=== PATIENT | male | born 1940 | race Hispanic/Latino ===

== ENCOUNTER → 2019-01-01 | Outpatient (CLI) | payer OTHER ==
[~2019-01-01] MED LIST: REGADENOSON 0.4 MG/5 ML PF SYG IVP SCH
== END | disposition home or self-care (01) ==
LOC: SHCH 09:10
PROVIDERS: ATTEND Internal Medicine Cardiovascular Disease
DX: I21.19 ST elevation (STEMI) myocardial infarction involving other coronary artery of inferior wall (principal)
CPT/HCPCS: 78452; 93017; 96374; A9500 ×2; J2785

== ENCOUNTER → 2020-06-13 | Outpatient (CLI) | payer OTHER | END | disposition home or self-care (01) | LOC: RAH 09:53 | PROVIDERS: ATTEND Internal Medicine Cardiovascular Disease | DX: R60.9 Edema, unspecified (principal) | CPT/HCPCS: 93970 ==

== ENCOUNTER → 2020-08-21 | Outpatient (CLI) | payer OTHER | END | disposition home or self-care (01) | LOC: SHCH 11:07 | PROVIDERS: ATTEND Internal Medicine Cardiovascular Disease | DX: I87.2 Venous insufficiency (chronic) (peripheral) (principal); I73.9 Peripheral vascular disease, unspecified; R59.0 Localized enlarged lymph nodes; R68.89 Other general symptoms and signs | CPT/HCPCS: 93925; 93970 ==

== ENCOUNTER → 2021-11-18 | Outpatient (CLI) | payer OTHER ==
[~2021-11-18] VITALS: Ht 172.7 cm; Wt 76.0 kg
[~2021-11-18] MED LIST changes: +AMLO-257 PO; +ASPI-1197 PO; +ATOR40TA71 PO; +CARV12.511 PO; +CEFAZOLIN SODIUM 1 GM VIAL IVP SCH; +CHOL200041 PO; +CITA-107 PO; +FURO20TA4 PO; +LISI2.5T13 PO; +MULT-1285 PO; +OMEG100033 PO; +OMEP20CA12 PO; -REGADENOSON 0.4 MG/5 ML PF SYG IVP SCH
[2021-11-18 13:02] LABS: BASOPHILS % (AUTO) 0.6 % (0.0-5.0); EOSINOPHILS % (AUTO) 2.7 % (0.0-8.0); HEMATOCRIT 42.9 % (42-54); LYMPHOCYTES % (AUTO) 21.6 % (21.0-51.0); MEAN CORPUSCULAR HEMOGLOBIN 29.2 pg (27.0-33.0); MEAN CORPUSCULAR HGB CONC 33.8 g/dL (32.0-36.0); MEAN CORPUSCULAR VOLUME 86.3 fL (79-99); MONOCYTES % (AUTO) 9.5 % (3.0-13.0); NEUTROPHILS % (AUTO) 65.4 % (40.0-77.0); PLATELET COUNT (AUTO) 118 K/uL (130-400); RED BLOOD CELL COUNT(AUTO) 4.97 MIL/uL (4.50-6.20); RED CELL DISTRIBUTION WIDTH 15.6 % (11.0-15.5); WHITE BLOOD COUNT (AUTO) 6.2 K/uL (4.8-10.8)
[2021-11-18 13:09] LABS: POTASSIUM 3.9 mmol/L (3.5-5.1)
[2021-11-18 13:59] LABS: CREATININE 1.4 mg/dL (0.5-1.5)
[2021-11-19 09:06] VITALS: BP 197/86
== END | disposition home or self-care (01) ==
LOC: EDSTATUS 10:00 → DAH 10:00
PROVIDERS: ATTEND Surgery
DX: Z01.818 Encounter for other preprocedural examination (principal); K40.90 Unilateral inguinal hernia, without obstruction or gangrene, not specified as recurrent; I49.1 Atrial premature depolarization; I45.10 Unspecified right bundle-branch block
CPT/HCPCS: 71045; 87426; 80048; 85025; 36415; 93005; A6260

== ENCOUNTER 2021-11-30 08:03 | Observation (INO) | payer OTHER ==
[2021-11-27 14:53] LABS: EOSINOPHILS % (AUTO) 4.8 % (0.0-8.0); HEMATOCRIT 36.6 % (42-54); LYMPHOCYTES % (AUTO) 37.8 % (21.0-51.0); MEAN CORPUSCULAR HEMOGLOBIN 29.5 pg (27.0-33.0); MEAN CORPUSCULAR HGB CONC 33.6 g/dL (32.0-36.0); MEAN CORPUSCULAR VOLUME 87.8 fL (79-99); MONOCYTES % (AUTO) 13.3 % (3.0-13.0); NEUTROPHILS % (AUTO) 42.9 % (40.0-77.0); PLATELET COUNT (AUTO) 104 K/uL (130-400); RED BLOOD CELL COUNT(AUTO) 4.17 MIL/uL (4.50-6.20); RED CELL DISTRIBUTION WIDTH 15.6 % (11.0-15.5)
[2021-11-27 15:10] LABS: CREATININE 1.3 mg/dL (0.5-1.5); POTASSIUM 3.7 mmol/L (3.5-5.1)
[2021-11-27 16:13] VITALS: BP 119/62
[~2021-11-30] VITALS: Ht 172.7 cm; Wt 78.7 kg
[2021-11-30] VITALS (23 sets, daily range): BP systolic 140–160; BP diastolic 65–97
[2021-11-30] MEDS ORDERED: BUPIVACAINE/PF 0.25% 30ML VIAL IJ ONE (09:01)
[2021-11-30] MEDS ORDERED: LACTATED RINGERS 1000ML 1,000 ML IV ONE (09:28)
[2021-11-30] MEDS ORDERED: CEFAZOLIN SODIUM 1 GM VIAL ONE (09:28)
[2021-11-30] MEDS ORDERED: LISI2.5T13 PO (10:16)
[2021-11-30] MEDS ORDERED: CITA-107 PO (10:16)
[2021-11-30] MEDS ORDERED: MULT-1285 PO (10:16)
[2021-11-30] MEDS ORDERED: ASPI-1197 PO (10:16)
[2021-11-30] MEDS ORDERED: CHOL200041 PO (10:16)
[2021-11-30] MEDS ORDERED: ATOR40TA71 PO (10:16)
[2021-11-30] MEDS ORDERED: OMEG100033 PO (10:16)
[2021-11-30] MEDS ORDERED: FURO20TA4 PO (10:16)
[2021-11-30] MEDS ORDERED: AMLO-257 PO (10:16)
[2021-11-30] MEDS ORDERED: OMEP20CA12 PO (10:16)
[2021-11-30] MEDS ORDERED: CARV12.511 PO (10:16)
[2021-11-30] MEDS ORDERED: LIDOCAINE HCL-MPF 2% 5ML VIAL ONE (11:23)
[2021-11-30] MEDS ORDERED: DEXAMETHASONE SOD PHOSPHATE 4 MG/ML 1ML VIAL ONE (11:23)
[2021-11-30] MEDS ORDERED: NEOSTIGMINE 5MG/5ML SYR IV ONE (11:24)
[2021-11-30] MEDS ORDERED: ROCURONIUM 10MG/1ML SYR 10 MG/ML ML ONE (11:24)
[2021-11-30] MEDS ORDERED: GLYCOPYRROLATE 1 MG/5 ML SYRINGE ONE (11:24)
[2021-11-30] MEDS ORDERED: FENTANYL CITRATE PF 50 MCG/1 ML 2ML VIAL ONE (11:25)
[2021-11-30] MEDS ORDERED: SUCCINYLCHOLINE CHLORIDE 20 MG/ML 10 ML VIAL ONE (13:16)
[2021-11-30] MEDS ORDERED: PROPOFOL 10 MG/ML 20ML VIAL IV ONE (13:16)
[2021-11-30] MEDS ORDERED: MEPERIDINE-PF 25 MG/ML SYG ONE (14:50)
[2021-11-30] MEDS: LACTATED RINGERS 1000ML 1,000 ML IV SCH (18:30)
[2021-11-30] MEDS ORDERED: ACETAMINOPHEN WITH CODEINE 1 TAB TAB PO PRN (18:30)
[2021-11-30] MEDS ORDERED: MORPHINE 4 MG SYG IVP PRN (18:30)
[2021-11-30] MEDS ORDERED: ONDANSETRON 4MG INJ IVP PRN (18:30)
[2021-11-30] MEDS: ATORVASTATIN 40 MG TABLET PO SCH (21:20)
[2021-11-30] MEDS: FUROSEMIDE 20 MG TABLET PO SCH (21:20)
[2021-11-30] MEDS: LISINOPRIL 2.5 MG TABLET PO SCH (21:21)
[2021-11-30] MEDS: CARVEDILOL 12.5 MG TABLET PO SCH (21:21)
[2021-11-30] MEDS: CEFAZOLIN SODIUM 1 GM VIAL IVP SCH (21:29)
[2021-12-01 01:17] VITALS: BP 165/93
[2021-12-01] MEDS ORDERED: CEFAZOLIN SODIUM 1 GM VIAL ONE ×2 (04:46→04:47)
[2021-12-01] MEDS: CEFAZOLIN SODIUM 1 GM VIAL IVP SCH (04:48)
[2021-12-01] MEDS: LACTATED RINGERS 1000ML 1,000 ML IV SCH ×2 (06:12→21:10)
[2021-12-01 08:00] VITALS: BP 143/84
[2021-12-01] MEDS: CHOLECALCIFEROL 50 MCG PO SCH (09:00)
[2021-12-01] MEDS: FISH OIL 1000 MG/CAP PO SCH (09:52)
[2021-12-01] MEDS: PANTOPRAZOLE 40 MG TAB DR PO SCH (09:52)
[2021-12-01] MEDS: LISINOPRIL 2.5 MG TABLET PO SCH ×2 (09:52→21:15)
[2021-12-01] MEDS: CITALOPRAM 20 MG TABLET PO SCH (09:52)
[2021-12-01] MEDS: AMLODIPINE 5 MG TAB PO SCH (09:52)
[2021-12-01] MEDS: FUROSEMIDE 20 MG TABLET PO SCH ×2 (09:53→21:15)
[2021-12-01] MEDS: MULTIVITAMIN WITH MINERALS TABLET PO SCH (09:54)
[2021-12-01] MEDS: ASPIRIN 81MG CHEW TAB PO SCH (09:54)
[2021-12-01] MEDS: CARVEDILOL 12.5 MG TABLET PO SCH ×2 (09:56→21:15)
[2021-12-01 12:00] VITALS: BP 152/88
[2021-12-01 16:00] VITALS: BP 136/75
[2021-12-01 20:00] VITALS: BP 123/69
[2021-12-01] MEDS: ATORVASTATIN 40 MG TABLET PO SCH (21:15)
[2021-12-02] VITALS: BP 131/68
[2021-12-02 04:00] VITALS: BP 136/71
[2021-12-02] MEDS: CHOLECALCIFEROL 50 MCG PO SCH (09:00)
[2021-12-02] MEDS: FISH OIL 1000 MG/CAP PO SCH (09:10)
[2021-12-02] MEDS: AMLODIPINE 5 MG TAB PO SCH (09:10)
[2021-12-02] MEDS: LISINOPRIL 2.5 MG TABLET PO SCH (09:10)
[2021-12-02] MEDS: MULTIVITAMIN WITH MINERALS TABLET PO SCH (09:10)
[2021-12-02 09:11] VITALS: BP 134/74
[2021-12-02] MEDS: CARVEDILOL 12.5 MG TABLET PO SCH (09:11)
[2021-12-02] MEDS: PANTOPRAZOLE 40 MG TAB DR PO SCH (09:12)
[2021-12-02] MEDS: FUROSEMIDE 20 MG TABLET PO SCH (09:12)
[2021-12-02] MEDS: ASPIRIN 81MG CHEW TAB PO SCH (09:12)
[2021-12-02] MEDS: CITALOPRAM 20 MG TABLET PO SCH (09:12)
[2021-12-02] MEDS: LACTATED RINGERS 1000ML 1,000 ML IV SCH (09:17)
== END 2021-12-02 16:00 ==
LOC: DAH 08:03 → DAHIP 08:04 → DAH 08:04 → EDSTATUS 12:00 → 4AH 15:28 → 3CH 12-01 03:05
PROVIDERS: ADMIT Surgery; ATTEND Surgery
DX: K40.90 Unilateral inguinal hernia, without obstruction or gangrene, not specified as recurrent (principal); Z20.822 Contact with and (suspected) exposure to COVID-19; I13.0 Hypertensive heart and chronic kidney disease with heart failure and stage 1 through stage 4 chronic kidney disease, or unspecified chronic kidney disease; E10.22 Type 1 diabetes mellitus with diabetic chronic kidney disease; I50.9 Heart failure, unspecified; N18.30 Chronic kidney disease, stage 3 unspecified; K21.9 Gastro-esophageal reflux disease without esophagitis; I25.5 Ischemic cardiomyopathy; E78.5 Hyperlipidemia, unspecified; G30.9 Alzheimer's disease, unspecified; F02.80 Dementia in other diseases classified elsewhere, unspecified severity, without behavioral disturbance, psychotic disturbance, mood disturbance, and anxiety; Z79.82 Long term (current) use of aspirin; Z79.899 Other long term (current) drug therapy
CPT/HCPCS: 80048; 85025; 87426; 36415; 49505; 96374; 88302; 96376; 96375; 97161; 97039 ×4; 97530; G0378 ×54; A4510; A4663; J7030; A4452; A4649; J7120 ×4; J3010; J0690 ×4; J3490 ×3; J2710; J0330; J2704; J1100; J2175; C1781; A4930 ×2; A4215; A4223; A4222; A4221; A4216; A4600; J2405

== ENCOUNTER 2021-12-04 00:46 | Observation (INO) | payer OTHER ==
[~2021-12-04] VITALS: Ht 168.9 cm; Wt 76.1 kg
[~2021-12-04 00:46] MED LIST changes: -CEFAZOLIN SODIUM 1 GM VIAL IVP SCH
[2021-12-04 01:13] LABS: BASOPHILS % (AUTO) 0.3 % (0.0-5.0); EOSINOPHILS % (AUTO) 0.6 % (0.0-8.0); HEMATOCRIT 32.6 % (42-54); MEAN CORPUSCULAR HEMOGLOBIN 29.6 pg (27.0-33.0); MEAN CORPUSCULAR VOLUME 86.9 fL (79-99); MONOCYTES % (AUTO) 14.8 % (3.0-13.0); PLATELET COUNT (AUTO) 100 K/uL (130-400); RED BLOOD CELL COUNT(AUTO) 3.75 MIL/uL (4.50-6.20); RED CELL DISTRIBUTION WIDTH 15.3 % (11.0-15.5); WHITE BLOOD COUNT (AUTO) 6.8 K/uL (4.8-10.8)
[2021-12-04 01:24] LABS: POTASSIUM 3.3 mmol/L (3.5-5.1)
[2021-12-04 01:28] LABS: ALBUMIN 4.1 g/dL (3.5-5.0); MAGNESIUM 2.2 mg/dL (1.80-2.40); TOTAL PROTEIN, SERUM 7.3 g/dL (6.0-8.3)
[2021-12-04] MEDS ORDERED: 0.9%NACL 1000ML 1,000 ML IV SCH (01:30)
[2021-12-04] MEDS ORDERED: TEMAZEPAM 15 MG CAPSULE PO PRN (02:30)
[2021-12-04] MEDS ORDERED: LACTULOSE 20 GM/30 ML UDCUP PO PRN (02:30)
[2021-12-04] MEDS ORDERED: DOCUSATE SODIUM 100 MG CAP PO PRN (02:30)
[2021-12-04] MEDS ORDERED: TRAMADOL HCL 50 MG TABLET PO PRN (02:30)
[2021-12-04] MEDS ORDERED: LACTATED RINGERS 1000ML 1,000 ML IV SCH (02:30)
[2021-12-04] MEDS ORDERED: HYDROCODONE/ACETAMINOPHEN 5/325 MG TAB PO PRN (02:30)
[2021-12-04] MEDS: 0.9%NACL 1000ML 1,000 ML IV SCH ×3 (03:04→19:54)
[2021-12-04 04:00] VITALS: BP 153/77
[2021-12-04 08:00] VITALS: BP 139/80
[2021-12-04 11:00] VITALS: BP 133/72
[2021-12-04 12:17] LABS: CREATININE 2.3 mg/dL (0.5-1.5); POTASSIUM 3.3 mmol/L (3.5-5.1)
[2021-12-04 16:00] VITALS: BP 144/71
[2021-12-04 19:59] VITALS: BP 144/72
[2021-12-04] MEDS ORDERED: LIDOCAINE HCL-MPF 1% 2ML VIAL IV PRN (23:30)
[2021-12-04] MEDS ORDERED: POTASSIUM CHLORIDE 10% ELIXIR 20 MEQ/15 ML UDCUP PO PRN (23:30)
[2021-12-04] MEDS ORDERED: POTASSIUM CHLORIDE 10MEQ/100ML 100 ML IV PRN (23:30)
[2021-12-04] MEDS: TAMSULOSIN HCL 0.4 MG CAP.ER.24H PO SCH (23:31)
[2021-12-05] VITALS (7 sets, daily range): BP systolic 118–126; BP diastolic 56–69
[2021-12-05 04:59] LABS: HEMATOCRIT 29.9 % (42-54); MEAN CORPUSCULAR HGB CONC 32.4 g/dL (32.0-36.0); MEAN CORPUSCULAR VOLUME 89.3 fL (79-99); RED BLOOD CELL COUNT(AUTO) 3.35 MIL/uL (4.50-6.20); RED CELL DISTRIBUTION WIDTH 15.4 % (11.0-15.5)
[2021-12-05 05:25] LABS: ALBUMIN 3.3 g/dL (3.5-5.0); CREATININE 1.2 mg/dL (0.5-1.5); MAGNESIUM 2.1 mg/dL (1.80-2.40); PHOSPHORUS 2.7 mg/dL (2.5-4.9); POTASSIUM 3.5 mmol/L (3.5-5.1); TOTAL PROTEIN, SERUM 6.2 g/dL (6.0-8.3)
[2021-12-05] MEDS: **HM**VIT D3 50MCG PO SCH (09:00)
[2021-12-05] MEDS ORDERED: NON-FORMULARY MEDICATION 1 EACH (Omeprazole 20 MG) PO SCH (09:00)
[2021-12-05] MEDS: AMLODIPINE 5 MG TAB PO SCH (09:41)
[2021-12-05] MEDS: MULTIVITAMIN WITH MINERALS TABLET PO SCH (09:41)
[2021-12-05] MEDS: CITALOPRAM 20 MG TABLET PO SCH (09:41)
[2021-12-05] MEDS: FISH OIL 1000 MG/CAP PO SCH (09:41)
[2021-12-05] MEDS: ASPIRIN 81MG CHEW TAB PO SCH (09:41)
[2021-12-05] MEDS: PANTOPRAZOLE 40 MG TAB DR PO SCH (09:41)
[2021-12-05] MEDS: CARVEDILOL 12.5 MG TABLET PO SCH ×2 (09:42→21:36)
[2021-12-05] MEDS: 0.9%NACL 1000ML 1,000 ML IV SCH (15:54)
[2021-12-05 16:23] LABS: APPEARANCE,URINE CLOUDY (CLEAR); BILIRUBIN,URINE NEGATIVE (NEGATIVE); COLOR,URINE YELLOW (YELLOW); GLUCOSE, URINE (UA) NEGATIVE (NEGATIVE); KETONES,URINE NEGATIVE (NEGATIVE); LEUKOCYTE ESTERASE ,URINE MODERATE (NEGATIVE); NITRATE,URINE NEGATIVE (NEGATIVE); OCCULT BLOOD,URINE LARGE (NEGATIVE); PROTEIN,URINE 100 mg/dL (NEGATIVE)
[2021-12-05 16:39] LABS: BACTERIA,URINE Few /HPF (None Seen); RBC,URINE 26-50 /HPF (0-1); WBC,URINE 51-100 /HPF (0-1)
[2021-12-05 16:40] LABS: MUCUS,URINE Few LPF (None Seen); SQUAMOUS EPITHELIAL CELL,UR Few /HPF (0-2)
[2021-12-05] MEDS: TAMSULOSIN HCL 0.4 MG CAP.ER.24H PO SCH (21:35)
[2021-12-05] MEDS: ATORVASTATIN 40 MG TABLET PO SCH (21:35)
[2021-12-06 03:33] VITALS: BP 116/68
[2021-12-06 05:01] LABS: BASOPHILS % (AUTO) 0.6 % (0.0-5.0); EOSINOPHILS % (AUTO) 2.3 % (0.0-8.0); HEMATOCRIT 29.5 % (42-54); LYMPHOCYTES % (AUTO) 13.6 % (21.0-51.0); MEAN CORPUSCULAR HEMOGLOBIN 29.6 pg (27.0-33.0); MEAN CORPUSCULAR HGB CONC 33.6 g/dL (32.0-36.0); MEAN CORPUSCULAR VOLUME 88.3 fL (79-99); MONOCYTES % (AUTO) 12.6 % (3.0-13.0); NEUTROPHILS % (AUTO) 70.6 % (40.0-77.0); PLATELET COUNT (AUTO) 86 K/uL (130-400); RED BLOOD CELL COUNT(AUTO) 3.34 MIL/uL (4.50-6.20); RED CELL DISTRIBUTION WIDTH 15.3 % (11.0-15.5); WHITE BLOOD COUNT (AUTO) 6.9 K/uL (4.8-10.8)
[2021-12-06 05:12] LABS: ALBUMIN 3.2 g/dL (3.5-5.0); POTASSIUM 3.1 mmol/L (3.5-5.1)
[2021-12-06] MEDS: KCL 20 MEQ ERTAB PO PRN ×3 (06:35→16:17)
[2021-12-06 08:15] VITALS: BP 129/66
[2021-12-06] MEDS: 0.9%NACL 1000ML 1,000 ML IV SCH (08:35)
[2021-12-06] MEDS ORDERED: FUROSEMIDE 20MG VIAL ONE ×2 (08:41→08:59)
[2021-12-06] MEDS: **HM**VIT D3 50MCG PO SCH (09:00)
[2021-12-06] MEDS: MULTIVITAMIN WITH MINERALS TABLET PO SCH (10:16)
[2021-12-06] MEDS: FISH OIL 1000 MG/CAP PO SCH (10:16)
[2021-12-06] MEDS: AMLODIPINE 5 MG TAB PO SCH (10:17)
[2021-12-06] MEDS: CARVEDILOL 12.5 MG TABLET PO SCH ×2 (10:17→20:50)
[2021-12-06] MEDS: PANTOPRAZOLE 40 MG TAB DR PO SCH (10:17)
[2021-12-06] MEDS: CEFTRIAXONE 1G VIAL IVP SCH (10:17)
[2021-12-06] MEDS: CITALOPRAM 20 MG TABLET PO SCH (10:17)
[2021-12-06] MEDS: ASPIRIN 81MG CHEW TAB PO SCH (10:17)
[2021-12-06 11:40] VITALS: BP 130/86
[2021-12-06] MEDS ORDERED: LEVO-70 PO (15:48)
[2021-12-06 16:21] VITALS: BP 126/62
[2021-12-06 20:49] VITALS: BP 121/76
[2021-12-06] MEDS: TAMSULOSIN HCL 0.4 MG CAP.ER.24H PO SCH (20:49)
[2021-12-06] MEDS: ATORVASTATIN 40 MG TABLET PO SCH (20:49)
[2021-12-06 23:52] VITALS: BP 132/67
[2021-12-07 04:33] VITALS: BP 139/61
[2021-12-07 07:14] VITALS: BP 136/70
[2021-12-07] MEDS: ASPIRIN 81MG CHEW TAB PO SCH (08:50)
[2021-12-07] MEDS: CEFTRIAXONE 1G VIAL IVP SCH (08:50)
[2021-12-07] MEDS: CITALOPRAM 20 MG TABLET PO SCH (08:50)
[2021-12-07] MEDS: FISH OIL 1000 MG/CAP PO SCH (08:50)
[2021-12-07] MEDS: 0.9%NACL 1000ML 1,000 ML IV SCH (08:50)
[2021-12-07] MEDS: PANTOPRAZOLE 40 MG TAB DR PO SCH (08:51)
[2021-12-07] MEDS: AMLODIPINE 5 MG TAB PO SCH (08:51)
[2021-12-07] MEDS: MULTIVITAMIN WITH MINERALS TABLET PO SCH (08:51)
[2021-12-07] MEDS: **HM**VIT D3 50MCG PO SCH (08:51)
[2021-12-07] MEDS: CARVEDILOL 12.5 MG TABLET PO SCH ×2 (08:51→20:43)
[2021-12-07 12:37] VITALS: BP 102/59
[2021-12-07 14:32] LABS: HEMATOCRIT 32.8 % (42-54); MEAN CORPUSCULAR HEMOGLOBIN 29.7 pg (27.0-33.0); MEAN CORPUSCULAR HGB CONC 33.2 g/dL (32.0-36.0); MEAN CORPUSCULAR VOLUME 89.4 fL (79-99); RED BLOOD CELL COUNT(AUTO) 3.67 MIL/uL (4.50-6.20); RED CELL DISTRIBUTION WIDTH 15.4 % (11.0-15.5); WHITE BLOOD COUNT (AUTO) 5.8 K/uL (4.8-10.8)
[2021-12-07 14:47] LABS: ALBUMIN 3.4 g/dL (3.5-5.0); CREATININE 1.1 mg/dL (0.5-1.5); POTASSIUM 3.6 mmol/L (3.5-5.1); TOTAL PROTEIN, SERUM 6.8 g/dL (6.0-8.3)
[2021-12-07] MEDS: KCL 20 MEQ ERTAB PO PRN ×2 (14:53→16:51)
[2021-12-07 18:04] VITALS: BP 106/73
[2021-12-07 20:07] VITALS: BP 133/68
[2021-12-07] MEDS: ATORVASTATIN 40 MG TABLET PO SCH (20:43)
[2021-12-07] MEDS: TAMSULOSIN HCL 0.4 MG CAP.ER.24H PO SCH (20:43)
[2021-12-07 23:56] VITALS: BP 158/65
[2021-12-08] MEDS: 0.9%NACL 1000ML 1,000 ML IV SCH (03:54)
[2021-12-08 04:16] VITALS: BP 127/68
[2021-12-08 08:01] VITALS: BP 136/74
[2021-12-08] MEDS: **HM**VIT D3 50MCG PO SCH (09:00)
[2021-12-08] MEDS: MULTIVITAMIN WITH MINERALS TABLET PO SCH (09:42)
[2021-12-08] MEDS: FISH OIL 1000 MG/CAP PO SCH (09:43)
[2021-12-08] MEDS: CARVEDILOL 12.5 MG TABLET PO SCH (09:43)
[2021-12-08] MEDS: CITALOPRAM 20 MG TABLET PO SCH (09:43)
[2021-12-08] MEDS: ASPIRIN 81MG CHEW TAB PO SCH (09:43)
[2021-12-08] MEDS: PANTOPRAZOLE 40 MG TAB DR PO SCH (09:43)
[2021-12-08] MEDS: AMLODIPINE 5 MG TAB PO SCH (09:43)
[2021-12-08] MEDS: CEFTRIAXONE 1G VIAL IVP SCH (09:57)
[2021-12-08 12:13] VITALS: BP 125/63
[2021-12-08 16:45] VITALS: BP 130/72
== END 2021-12-08 19:30 ==
LOC: EDH 00:46 → EDHIP 02:37 → 3BH 04:00
PROVIDERS: ADMIT Internal Medicine; ATTEND Internal Medicine
DX: N17.9 Acute kidney failure, unspecified (principal); E87.8 Other disorders of electrolyte and fluid balance, not elsewhere classified; E87.6 Hypokalemia; I13.0 Hypertensive heart and chronic kidney disease with heart failure and stage 1 through stage 4 chronic kidney disease, or unspecified chronic kidney disease; I50.9 Heart failure, unspecified; N18.30 Chronic kidney disease, stage 3 unspecified; E78.00 Pure hypercholesterolemia, unspecified; E87.1 Hypo-osmolality and hyponatremia; E86.0 Dehydration; K44.9 Diaphragmatic hernia without obstruction or gangrene; K57.90 Diverticulosis of intestine, part unspecified, without perforation or abscess without bleeding; N13.6 Pyonephrosis; F32.A Depression, unspecified; Z79.82 Long term (current) use of aspirin
CPT/HCPCS: 96361 ×5; 99284; 83735 ×2; 80053 ×4; 85025 ×2; 36415 ×4; 76700; 84100; 85027 ×2; 87088; 83605; 81001; 74176; 97161; 97039 ×4; 96374; 96375; 78700; 96376 ×2; 97116 ×2; G0378 ×111; J7030; J0696 ×3; J1940; A9562; 80048

== ENCOUNTER → 2022-02-05 | Outpatient (CLI) | payer OTHER ==
[~2022-02-05] MED LIST changes: +LEVO-70 PO
[2022-02-05 12:58] LABS: CREATININE 1.3 mg/dL (0.5-1.5); MAGNESIUM 2.1 mg/dL (1.80-2.40); POTASSIUM 4.4 mmol/L (3.5-5.1)
== END | disposition home or self-care (01) ==
LOC: LAB 11:18
PROVIDERS: ATTEND Internal Medicine Cardiovascular Disease
DX: I87.2 Venous insufficiency (chronic) (peripheral) (principal); R60.9 Edema, unspecified
CPT/HCPCS: 36415; 80048; 83735; 83880